=== PATIENT | female | born 1950 ===

== ENCOUNTER 2023-11-29 09:07 | Day surgery (SDC) | payer BC, MEDICARE ==
[~2023-11-29 09:07] MED LIST: Sodium Chloride 0.9% 10 ML Syringe FLUSH PRN; Sodium Chloride 0.9% 10 ML Syringe FLUSH SCH
[2023-11-29] MEDS: Lactated Ringers 1,000 ML IV SCH (09:35)
[2023-11-29] MEDS ORDERED: Propofol 200 MG/20 ML SDV ONE (11:27)
[2023-11-29] MEDS ORDERED: Lidocaine 1% 2 ML ONE (12:02)
[2023-11-29 14:03] VITALS: BP 134/64; PULSE 74
== END 2023-11-29 14:39 | disposition home or self-care (01) ==
LOC: JD.SDS 09:07
PROVIDERS: ATTEND Student in an Organized Health Care Education/Training Program
DX: Z12.11 Encounter for screening for malignant neoplasm of colon (principal); K57.30 Diverticulosis of large intestine without perforation or abscess without bleeding; K29.70 Gastritis, unspecified, without bleeding; E66.9 Obesity, unspecified
CPT/HCPCS: 43239; 45378; J2704; J7120; 00813; 99100; J3490